=== PATIENT | male | born 1970 | race Caucasian/White ===

== ENCOUNTER 2017-02-24 21:13 | Inpatient (IN) | payer BC, OTHER ==
[2017-02-24] MEDS: Sodium Chloride 0.9% 1,000 ML IV SCH (21:30)
[2017-02-24 21:33] LABS: VENOUS BLOOD GAS BASE EXCESS 2.4 mmol/L (0.0-2.0); VENOUS BLOOD GAS PCO2 51 mmHg (40-60); VENOUS BLOOD PH 7.36 (7.32-7.43)
[2017-02-24 21:41] LABS: BASO % 0.5 % (0.0-2.0); EOS % 0.3 % (0.0-4.0); HEMATOCRIT 39.7 % (35.0-51.0); LYMPH # 2.9 K/uL (1.0-4.3); LYMPH % 43.1 % (20.0-40.0); MEAN CELL VOLUME 81.6 fL (80.0-94.0); MEAN CORPUSCULAR HEMOGLOBIN 27.3 pg (27.0-31.0); MEAN CORPUSCULAR HGB CONC 33.4 g/dL (33.0-37.0); MONO # 0.4 K/uL (0.0-0.8); RED CELL DISTRIBUTION WIDTH 14.3 % (11.5-14.5); WHITE BLOOD COUNT 6.7 K/uL (4.8-10.8)
[2017-02-24 21:46] LABS: RBC URINE 12 /hpf (0-3); URINE BACTERIA RARE (<OCC); URINE BILIRUBIN NEGATIVE (NEGATIVE); URINE COLOR Yellow (YELLOW); URINE GLUCOSE (UA) 1+ mg/dL (Normal); URINE KETONE NEGATIVE (NEGATIVE); URINE LEUKOCYTE ESTERASE NEG Leu/uL (Negative); URINE PROTEIN NEGATIVE (NEGATIVE); URINE UROBILINOGEN NORMAL mg/dL (0.2-1.0); WBC URINE 4 /hpf (0-5)
[2017-02-24 21:47] LABS: URINE BLOOD 1+ (NEGATIVE)
[2017-02-24 21:49] LABS: INR 1.1
[2017-02-24 21:52] LABS: CHLORIDE 100 mmol/L (98-107)
[2017-02-24 21:53] LABS: POTASSIUM 4.3 mmol/L (3.6-5.2); SODIUM 143 mmol/L (132-148)
[2017-02-24 21:55] LABS: ABG ALLEN TEST P; ABG MECHANICAL RATE 12; ARTERIAL BLOOD GAS MODE PRVC; ATERIAL BLOOD GAS PEEP 5; DRAW SITE LB
[2017-02-24 21:55] LABS: ALB/GLOB RATIO 1.9 (1.0-2.1); ALKALINE PHOSPHATASE 51 U/L (38-126); AST/SGOT 103 U/L (17-59); BILIRUBIN,TOTAL 0.9 mg/dL (0.2-1.3); CARBON DIOXIDE 24 mmol/L (22-30); CHOLESTEROL 100 mg/dL (0-199); GFR AFRICAN-AMERICAN > 60; TOTAL PROTEIN 6.7 g/dL (6.3-8.3)
[2017-02-24 21:56] LABS: ALT/SGPT 62 U/L (21-72); BLOOD UREA NITROGEN 16 mg/dL (9-20); CALCIUM 8.1 mg/dl (8.6-10.4); GLUCOSE,RANDOM 151 mg/dL (75-110)
[2017-02-24 22:08] LABS: ALCOHOL SERUM 523 mg/dl (0-10)
--- NOTE | 2017-02-24 22:14 | CT ---
EXAM: CT Head Without Intravenous Contrast CLINICAL HISTORY: 47 years old, male; Condition or disease; Other: Unresponsive; Additional info: Change of md, ? intox TECHNIQUE: Axial computed tomography images of the head/brain without intravenous contrast. All CT scans at this facility use one or more dose reduction techniques, viz.: automated exposure control; ma/kV adjustment per patient size (including targeted exams where dose is matched to indication; i.e. head); or iterative reconstruction technique. COMPARISON: No relevant prior studies available. FINDINGS: Brain: No intracranial hemorrhage. No mass. No definite edema. Ventricles: No hydrocephalus. Bones/joints: No acute fracture. Soft tissues: Mild to moderate stranding within scalp. Sinuses: Minimal mucosal thickening of LEFT sphenoid sinus. Mastoid air cells: No mastoid effusion. Orbits: Unremarkable as visualized. Tubes, lines and devices: Endotracheal tube. Orogastric tube. IMPRESSION: 1. No definite acute intracranial abnormality. 2. Incidental/non-acute findings are described above.
--- NOTE | 2017-02-24 22:33 | C.PDOC ---
History Of Present Illness 47 year old male was brought to the ED by EMS after passing out on train from [facility] to [place]. CPR was provided on scene and patient was entubated. Patient's was contacted who notes a medical history of HTN, diabetes, and alcoholism. EMS denies vomiting or fever. Time Seen by Provider: 02/24/17 21:17 Chief Complaint (Nursing): Cardiac Arrest History Per: EMS, Family ( via cell phone ) History/Exam Limitations: no limitations Onset/Duration Of Symptoms: Mins Current Symptoms Are (Timing): Still Present Recent travel outside of the [place]: No Past Medical History Reviewed: Historical Data, Nursing Documentation, Vital Signs Vital Signs: Last Vital Signs Temp 97.5 F L 02/24/17 23:18 Pulse 85 02/25/17 00:20 Resp 12 02/25/17 00:20 BP 107/52 L 02/25/17 00:09 Pulse Ox 100 02/25/17 00:20 - Medical History PMH: HTN, Hypercholesterolemia Family History: States: Unknown Family Hx - Social History Hx Alcohol Use: Yes Hx Substance Use: No - Immunization History Hx Tetanus Toxoid Vaccination: No Hx Influenza Vaccination: No Hx Pneumococcal Vaccination: No Review Of Systems Constitutional: Positive for: Other (patient passed out on the train and was given CPR ). Negative for: Fever, Chills Respiratory: Negative for: Cough Gastrointestinal: Negative for: Vomiting, Diarrhea Physical Exam - Physical Exam Appears: Non-toxic, In Acute Distress Skin: Warm, Dry, No Diaphoretic Head: Atraumatic, Normacephalic Eye(s): bilateral: Other (Fixed pupils at 3 cm ) Oral Mucosa: Moist Throat: Other (ET tube, 7.5, to 23 cm in lips ) Neck: Normal ROM, Supple Chest: Symmetrical, No Deformity Cardiovascular: Rhythm Regular, No Murmur Respiratory: Normal Breath Sounds, No Rales, No Rhonchi, No Wheezing Extremity: Other (Intraosseous in left humoral head and tibia ) ED Course And Treatment - Laboratory Results Result Diagrams: 02/24/17 21:30 02/24/17 21:30 Lab Interpretation: Abnormal (ABG, VBG, wnl, ETOH 523 H) ECG: Interpreted By [place] ECG Rhythm: Sinus Rhythm ECG Interpretation: Normal Rate From EC O2 Sat by Pulse Oximetry: 100 Pulse Ox Interpretation: Normal - Radiology CXR: Interpreted by Me CXR Interpretation: Yes: Other (good ET tube) Progress Note: EKG, CXR, and labs were ordered. Patient was given Diprivan and IV fluids. Reevaluation Time: 22:33 Reassessment Condition: Improved (not sedated, f/u ABG good.) - Physician Consult Information Outcome Of Conversation: 2230: d/w ICU, ok to ICU. 2230: d/w PMD, Dr. Lola Orta , ok to ICU Critical Care Time - Critical Care Note Total Time (in mins): 90 Documented critical care: time excludes all time spent performing seperately billable procedures. Medical Decision Making Medical Decision Making: alcohol abuse, collapse, ? resp arrest/apneic, CPR by bystanders on the train, but NSR initial stable rhythm, intubated in the field for poor resp effort and airway protection. Normal head CT. h/o etoh abuse to ICU for appropriate care of intubated pt while metabolizing alcohol. Disposition Doctor Will See Patient In The: Hospital Counseled Patient/Family Regarding: Studies Performed, Diagnosis - Disposition Disposition: HOSPITALIZED Disposition Time: 22:37 Condition: CRITICAL - Clinical Impression Clinical Impression: Respiratory arrest, Alcohol intoxication - Scribe Statement The provider has reviewed the documentation as recorded by the Scribe Lesley Valle All medical record entries made by the Scribe were at my direction and personally dictated by me. I have reviewed the chart and agree that the record accurately reflects my personal performance of the history, physical exam, medical decision making, and the department course for this patient. I have also personally directed, reviewed, and agree with the discharge instructions and disposition.
[2017-02-24] MEDS ORDERED: Sodium Chloride 0.9% 1,000 ML IV ONE (22:55)
[2017-02-24] MEDS ORDERED: Propofol 10 mg/ml 1,000 MG/100 ML VIAL IV PRN (23:15)
[2017-02-24] MEDS ORDERED: Propofol 10 mg/ml 1,000 MG/100 ML VIAL IV SCH (23:15)
--- NOTE | 2017-02-24 23:24 | CP.PCM.CON ---
History of Present Illness - History of Present Illness History of Present Illness: CCM 47 yo male with hx ETOH Abuse /HTN /HLD /? DM found unresponsive on train and received bystander CPR briefly then was intubated by EMS. Pt Intoxicated and no hx obtainable when seen in ED. Brother is at bedside. 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 Meds- reviewed FH- Unknown PE P-92 r- 15 BP-112/80 Intubated, moving on vent Perrl Neck- no jvdlungs- bilat bs Heart-rr aBd- benign eXt- no edmea, nontender Neuro- moves all ext Labs, EKG, [id number] A&P s/p Cardiac/ Resp Arrest ETOH Intoxication HTN HLD ADmit to ICU cont vent support tonigh Propofol titrated for sedation IV hydration maintain optimal lytes f/u labs ECHO neuro checks DVT & GI prophylaxis Detox counseling MVI /thiamine /folic acid Past Patient History - Past Social History Smoking Status: smokeless - CARDIAC Hx Hypercholesterolemia: Yes Hx Hypertension: Yes - ENDOCRINE/METABOLIC Hx Diabetes Mellitus Type 2: Yes - PSYCHIATRIC Hx Substance Use: No - SURGICAL HISTORY Hx Surgeries: No Meds Allergies/Adverse Reactions: Allergies Allergy/AdvReac Type Severity Reaction Status Date / Time grape Allergy Verified 02/24/17 21:31 - Medications Medications: Current Medications Sodium Chloride (Sodium Chloride 0.9%) 1,000 mls @ 250 mls/hr IV .Q4H ED Last Admin: 02/24/17 21:30 Dose: 250 mls/hr Sodium Chloride (Sodium Chloride 0.9%) 1,000 mls @ 150 mls/hr IV .Q6H40M ONE Stop: 02/25/17 05:34 Propofol (Diprivan) 1,000 mg in 100 mls @ 2.858 mls/hr IV .Q24H PRN; 5 MCG/KG/ MIN PRN Reason: Protocol Results - Vital Signs Recent Vital Signs: Last Vital Signs Temp Pulse 81 02/24/17 22:11 Resp 14 02/24/17 22:11 BP 112/80 02/24/17 22:11 Pulse Ox 100 02/24/17 22:39 - Labs Result Diagrams: 02/24/17 21:30 02/24/17 21:30 Labs: Laboratory Results - last 24 hr 02/24/17 02/24/17 02/24/17 21:23 21:30 21:30 WBC 6.7 RBC 4.87 Hgb 13.3 Hct 39.7 MCV 81.6 MCH 27.3 MCHC 33.4 RDW 14.3 Plt Count 348 MPV 7.0 L Neut % (Auto) 50.1 Lymph % (Auto) 43.1 H [place] % (Auto) 6.0 Eos % (Auto) 0.3 Baso % (Auto) 0.5 Neut # 3.4 Lymph # 2.9 [place] # 0.4 Eos # 0.0 Baso # 0.0 PT 12.6 H INR 1.1 APTT 25 Puncture Site pCO2 pO2 HCO3 ABG pH ABG Total CO2 ABG O2 Saturation ABG Base Excess Omer Test ABG Potassium VBG pH VBG pCO2 VBG HCO3 VBG Total CO2 VBG O2 Sat (Calc) VBG Base Excess VBG Potassium A-a O2 Difference Respiratory Index Sodium Chloride Glucose Lactate Vent Mode Mechanical Rate FiO2 Tidal Volume PEEP Potassium Carbon Dioxide Anion Gap BUN Creatinine Est GFR ( Amer) Est GFR (Non-Af Amer) POC Glucose (mg/dL) 145 H Random Glucose Hemoglobin A1c Calcium Total Bilirubin AST ALT Alkaline Phosphatase Troponin I Total Protein Albumin Globulin Albumin/Globulin Ratio Triglycerides Cholesterol LDL Cholesterol Direct HDL Cholesterol Arterial Blood Potassium Venous Blood Potassium Urine Color Urine Clarity Urine pH Ur Specific [place] Urine Protein Urine Glucose (UA) Urine Ketones Urine Blood Urine Nitrate Urine Bilirubin Urine Urobilinogen Ur Leukocyte Esterase Urine WBC (Auto) Urine RBC (Auto) Urine Bacteria Hyaline Casts Urine Opiates Screen Urine Methadone Screen Ur Barbiturates Screen Ur Phencyclidine Scrn Ur Amphetamines Screen U Benzodiazepines Scrn U Oth Cocaine Metabols U Cannabinoids Screen Alcohol, Quantitative 02/24/17 02/24/17 02/24/17 21:30 21:30 21:30 WBC RBC Hgb Hct MCV MCH MCHC RDW Plt Count MPV Neut % (Auto) Lymph % (Auto) [place] % (Auto) Eos % (Auto) Baso % (Auto) Neut # Lymph # [place] # Eos # Baso # PT INR APTT Puncture Site pCO2 pO2 311 H HCO3 ABG pH ABG Total CO2 ABG O2 Saturation ABG Base Excess Omer Test ABG Potassium VBG pH 7.36 VBG pCO2 51 VBG HCO3 26.9 VBG Total CO2 30.4 H VBG O2 Sat (Calc) 99.9 H VBG Base Excess 2.4 H VBG Potassium 3.7 A-a O2 Difference Respiratory Index Sodium 143 140.0 Chloride 100 106.0 Glucose 171 H Lactate 3.7 H Vent Mode Mechanical Rate FiO2 Tidal Volume PEEP Potassium 4.3 Carbon Dioxide 24 Anion Gap 24 H BUN 16 Creatinine 0.8 Est GFR ( Amer) > 60 Est GFR (Non-Af Amer) > 60 POC Glucose (mg/dL) Random Glucose 151 H Hemoglobin A1c 7.3 H Calcium 8.1 L Total Bilirubin 0.9 AST 103 H ALT 62 Alkaline Phosphatase 51 Troponin I < 0.0120 Total Protein 6.7 Albumin 4.3 Globulin 2.3 Albumin/Globulin Ratio 1.9 Triglycerides 361 H Cholesterol 100 LDL Cholesterol Direct < 30 HDL Cholesterol 65 Arterial Blood Potassium Venous Blood Potassium 3.7 Urine Color Urine Clarity Urine pH Ur Specific [place] Urine Protein Urine Glucose (UA) Urine Ketones Urine Blood Urine Nitrate Urine Bilirubin Urine Urobilinogen Ur Leukocyte Esterase Urine WBC (Auto) Urine RBC (Auto) Urine Bacteria Hyaline Casts Urine Opiates Screen Urine Methadone Screen Ur Barbiturates Screen Ur Phencyclidine Scrn Ur Amphetamines Screen U Benzodiazepines Scrn U Oth Cocaine Metabols U Cannabinoids Screen Alcohol, Quantitative 523 H 02/24/17 02/24/17 02/24/17 21:38 21:38 21:50 WBC RBC Hgb Hct MCV MCH MCHC RDW Plt Count MPV Neut % (Auto) Lymph % (Auto) [place] % (Auto) Eos % (Auto) Baso % (Auto) Neut # Lymph # [place] # Eos # Baso # PT INR APTT Puncture Site Lb pCO2 49 H pO2 190 H HCO3 25.6 ABG pH 7.35 ABG Total CO2 28.6 H ABG O2 Saturation 99.5 H ABG Base Excess 0.8 Omer Test P ABG Potassium 3.4 L VBG pH VBG pCO2 VBG HCO3 VBG Total CO2 VBG O2 Sat (Calc) VBG Base Excess VBG Potassium A-a O2 Difference 462.0 Respiratory Index 2.4 Sodium 140.0 Chloride 107.0 Glucose 169 H Lactate 3.7 H Vent Mode Prvc Mechanical Rate 12 FiO2 100.0 Tidal Volume 500 PEEP 5 Potassium Carbon Dioxide Anion Gap BUN Creatinine Est GFR ( Amer) Est GFR (Non-Af Amer) POC Glucose (mg/dL) Random Glucose Hemoglobin A1c Calcium Total Bilirubin AST ALT Alkaline Phosphatase Troponin I Total Protein Albumin Globulin Albumin/Globulin Ratio Triglycerides Cholesterol LDL Cholesterol Direct HDL Cholesterol Arterial Blood Potassium 3.4 L Venous Blood Potassium Urine Color Yellow Urine Clarity Clear Urine pH 6.0 Ur Specific [place] 1.014 Urine Protein Negative Urine Glucose (UA) 1+ H Urine Ketones Negative Urine Blood 1+ H Urine Nitrate Negative Urine Bilirubin Negative Urine Urobilinogen Normal Ur Leukocyte Esterase Neg Urine WBC (Auto) 4 Urine RBC (Auto) 12 H Urine Bacteria Rare Hyaline Casts 6-10 H Urine Opiates Screen Negative Urine Methadone Screen Negative Ur Barbiturates Screen Negative Ur Phencyclidine Scrn Negative Ur Amphetamines Screen Negative U Benzodiazepines Scrn Positive U Oth Cocaine Metabols Negative U Cannabinoids Screen Negative Alcohol, Quantitative Assessment & Plan (1) Respiratory arrest Status: Acute (2) Cardiac arrest Status: Acute (3) ETOH abuse Status: Acute
[2017-02-24] MEDS ORDERED: Thiamine 100 mg/ml Inj IV ONE (23:32)
[2017-02-25] MEDS: Sodium Chloride 0.9% 1,000 ML IV SCH ×3 (01:30→10:18)
[2017-02-25 05:48] LABS: ABG MECHANICAL RATE 12; ARTERIAL BLOOD GAS MODE PRVC; ARTERIAL BLOOD HGB O2 SAT 97.4 % (95.0-98.0); ATERIAL BLOOD GAS PEEP 5; CARBOXYHEMOGLOBIN 1.3 % (0.5-1.5); DRAW SITE RB; HHB 0.2 % (0.0-5.0); METHEMOGLOBIN 1.2 % (0.0-3.0)
[2017-02-25] MEDS: (Novolin R) Insulin Human Regular 100 units/ml vial SC SCH ×4 (06:00→17:02)
[2017-02-25 06:53] LABS: BASO % 0.4 % (0.0-2.0); EOS % 0.1 % (0.0-4.0); HEMATOCRIT 40.2 % (35.0-51.0); LYMPH # 2.7 K/uL (1.0-4.3); LYMPH % 28.7 % (20.0-40.0); MEAN CELL VOLUME 82.6 fL (80.0-94.0); MEAN CORPUSCULAR HEMOGLOBIN 27.9 pg (27.0-31.0); MEAN CORPUSCULAR HGB CONC 33.8 g/dL (33.0-37.0); MEAN PLATELET VOLUME 7.4 fL (7.2-11.7); MONO # 0.5 K/uL (0.0-0.8); MONO % 5.3 % (0.0-10.0); WHITE BLOOD COUNT 9.5 K/uL (4.8-10.8)
[2017-02-25 07:01] LABS: CHLORIDE 108 mmol/L (98-107); SODIUM 149 mmol/L (132-148)
[2017-02-25 07:02] LABS: POTASSIUM 4.9 mmol/L (3.6-5.2)
[2017-02-25 07:04] LABS: ALB/GLOB RATIO 1.8 (1.0-2.1); ALKALINE PHOSPHATASE 55 U/L (38-126); ALT/SGPT 60 U/L (21-72); AST/SGOT 76 U/L (17-59); BILIRUBIN,TOTAL 0.7 mg/dL (0.2-1.3); BLOOD UREA NITROGEN 11 mg/dL (9-20); CARBON DIOXIDE 23 mmol/L (22-30); GFR AFRICAN-AMERICAN > 60; GLUCOSE,RANDOM 109 mg/dL (75-110); TOTAL PROTEIN 6.4 g/dL (6.3-8.3)
[2017-02-25 07:55] LABS: PHOSPHOROUS 4.7 mg/dL (2.5-4.5)
[2017-02-25 07:56] LABS: MAGNESIUM 1.8 mg/dL (1.6-2.3)
--- NOTE | 2017-02-25 09:47 | RAD ---
HISTORY: adm, post-intub COMPARISON: No prior. FINDINGS: In situ ETT, tip of which lies approximately 5.2 cm above frantz. LUNGS: Poor inspiration with low lung volumes, crowded bronchovascular markings and minor bibasilar atelectasis. PLEURA: No significant pleural effusion identified, no pneumothorax apparent. CARDIOVASCULAR: Normal. OSSEOUS STRUCTURES: No significant abnormalities. VISUALIZED UPPER ABDOMEN: Normal. OTHER FINDINGS: None. IMPRESSION: In situ ETT as above. Poor inspiration with low lung volumes, crowded bronchovascular markings and minor bibasilar atelectasis.
[2017-02-25] MEDS: Multiple Vitamins Tab PO SCH (09:57)
--- NOTE | 2017-02-25 10:56 | RAD ---
PROCEDURE: CHEST RADIOGRAPH, 1 VIEW HISTORY: ICU routine/Intubated COMPARISON: Comparison made with chest radiograph 02/24/2017 FINDINGS: Interval removal endotracheal tube LUNGS: There appears to be some minimal left basilar atelectasis. PLEURA: No pneumothorax or pleural fluid seen. CARDIOVASCULAR: Normal. OSSEOUS STRUCTURES: No significant abnormalities. VISUALIZED UPPER ABDOMEN: Normal. OTHER FINDINGS: None. IMPRESSION: Interval removal endotracheal tube Suspect minimal left basilar atelectasis.
--- NOTE | 2017-02-25 14:37 | CP.PCM.HP ---
History of Present Illness - History of Present Illness History of Present Illness: A 47-year-old male was brought in by EMS after passing out on a train from [place] to [place]. CPR was provided on the scene and the patient was intubated Patient's was consulted and she gives a history of alcohol abuse, HTN, hyperlipidemia and diabetes mellitus. No other history is obtainable. Patient is intubated on mechanical ventilation. Past Patient History - Past Medical History & Family History Past Medical History?: Yes - Past Social History Smoking Status: Unknown If Ever Smoked - CARDIAC Hx Hypercholesterolemia: Yes Hx Hypertension: Yes - PULMONARY Hx Respiratory Disorders: No - NEUROLOGICAL Hx Neurological Disorder: No - HEENT Hx HEENT Problems: No - RENAL Hx Chronic Kidney Disease: No - ENDOCRINE/METABOLIC Hx Endocrine Disorders: Yes Hx Diabetes Mellitus Type 2: Yes - HEMATOLOGICAL/ONCOLOGICAL Hx Blood Disorders: No - INTEGUMENTARY Hx Dermatological Problems: No - MUSCULOSKELETAL/RHEUMATOLOGICAL Hx Musculoskeletal Disorders: No Hx Falls: No - GASTROINTESTINAL Hx Gastrointestinal Disorders: No - GENITOURINARY/GYNECOLOGICAL Hx Genitourinary Disorders: No - PSYCHIATRIC Hx Substance Use: No - SURGICAL HISTORY Hx Surgeries: No Meds Allergies/Adverse Reactions: Allergies Allergy/AdvReac Type Severity Reaction Status Date / Time grape Allergy Verified 02/24/17 21:31 Physical Exam - Constitutional Appears: Well - Head Exam Head Exam: ATRAUMATIC, NORMAL INSPECTION, NORMOCEPHALIC - Eye Exam Eye Exam: EOMI, Normal appearance, PERRL Pupil Exam: NORMAL ACCOMODATION, PERRL - ENT Exam ENT Exam: Mucous Membranes Moist, Normal Exam - Neck Exam Neck exam: Positive for: Normal Inspection - Respiratory Exam Respiratory Exam: Decreased Breath Sounds - Cardiovascular Exam Cardiovascular Exam: REGULAR RHYTHM, +S1, +S2 - GI/Abdominal Exam GI & Abdominal Exam: Diminished Bowel Sounds, Soft - Rectal Exam Rectal Exam: Deferred Results - Vital Signs Recent Vital Signs: Last Vital Signs Temp 98.3 F 02/25/17 12:00 Pulse 89 02/25/17 14:10 Resp 10 L 02/25/17 14:10 BP 116/68 02/25/17 13:54 Pulse Ox 99 02/25/17 14:10 - Labs Result Diagrams: 02/25/17 06:43 02/25/17 06:43 Labs: Laboratory Results - last 24 hr 02/24/17 02/24/17 02/24/17 21:23 21:30 21:30 WBC 6.7 RBC 4.87 Hgb 13.3 Hct 39.7 MCV 81.6 MCH 27.3 MCHC 33.4 RDW 14.3 Plt Count 348 MPV 7.0 L Neut % (Auto) 50.1 Lymph % (Auto) 43.1 H [place] % (Auto) 6.0 Eos % (Auto) 0.3 Baso % (Auto) 0.5 Neut # 3.4 Lymph # 2.9 [place] # 0.4 Eos # 0.0 Baso # 0.0 PT 12.6 H INR 1.1 APTT 25 Puncture Site pCO2 pO2 HCO3 ABG pH ABG Total CO2 ABG O2 Saturation ABG Base Excess ABG Hemoglobin ABG Carboxyhemoglobin POC ABG HHb (Measured) ABG Methemoglobin Omer Test ABG Potassium VBG pH VBG pCO2 VBG HCO3 VBG Total CO2 VBG O2 Sat (Calc) VBG Base Excess VBG Potassium A-a O2 Difference Respiratory Index Hgb O2 Saturation Sodium Chloride Glucose Lactate Vent Mode Mechanical Rate FiO2 Tidal Volume PEEP Potassium Carbon Dioxide Anion Gap BUN Creatinine Est GFR ( Amer) Est GFR (Non-Af Amer) POC Glucose (mg/dL) 145 H Random Glucose Hemoglobin A1c Calcium Phosphorus Magnesium Total Bilirubin AST ALT Alkaline Phosphatase Troponin I Total Protein Albumin Globulin Albumin/Globulin Ratio Triglycerides Cholesterol LDL Cholesterol Direct HDL Cholesterol Arterial Blood Potassium Venous Blood Potassium Urine Color Urine Clarity Urine pH Ur Specific [place] Urine Protein Urine Glucose (UA) Urine Ketones Urine Blood Urine Nitrate Urine Bilirubin Urine Urobilinogen Ur Leukocyte Esterase Urine WBC (Auto) Urine RBC (Auto) Urine Bacteria Hyaline Casts Urine Opiates Screen Urine Methadone Screen Ur Barbiturates Screen Ur Phencyclidine Scrn Ur Amphetamines Screen U Benzodiazepines Scrn U Oth Cocaine Metabols U Cannabinoids Screen Alcohol, Quantitative 02/24/17 02/24/17 02/24/17 21:30 21:30 21:30 WBC RBC Hgb Hct MCV MCH MCHC RDW Plt Count MPV Neut % (Auto) Lymph % (Auto) [place] % (Auto) Eos % (Auto) Baso % (Auto) Neut # Lymph # [place] # Eos # Baso # PT INR APTT Puncture Site pCO2 pO2 311 H HCO3 ABG pH ABG Total CO2 ABG O2 Saturation ABG Base Excess ABG Hemoglobin ABG Carboxyhemoglobin POC ABG HHb (Measured) ABG Methemoglobin Omer Test ABG Potassium VBG pH 7.36 VBG pCO2 51 VBG HCO3 26.9 VBG Total CO2 30.4 H VBG O2 Sat (Calc) 99.9 H VBG Base Excess 2.4 H VBG Potassium 3.7 A-a O2 Difference Respiratory Index Hgb O2 Saturation Sodium 143 140.0 Chloride 100 106.0 Glucose 171 H Lactate 3.7 H Vent Mode Mechanical Rate FiO2 Tidal Volume PEEP Potassium 4.3 Carbon Dioxide 24 Anion Gap 24 H BUN 16 Creatinine 0.8 Est GFR ( Amer) > 60 Est GFR (Non-Af Amer) > 60 POC Glucose (mg/dL) Random Glucose 151 H Hemoglobin A1c 7.3 H Calcium 8.1 L Phosphorus Magnesium Total Bilirubin 0.9 AST 103 H ALT 62 Alkaline Phosphatase 51 Troponin I < 0.0120 Total Protein 6.7 Albumin 4.3 Globulin 2.3 Albumin/Globulin Ratio 1.9 Triglycerides 361 H Cholesterol 100 LDL Cholesterol Direct < 30 HDL Cholesterol 65 Arterial Blood Potassium Venous Blood Potassium 3.7 Urine Color Urine Clarity Urine pH Ur Specific [place] Urine Protein Urine Glucose (UA) Urine Ketones Urine Blood Urine Nitrate Urine Bilirubin Urine Urobilinogen Ur Leukocyte Esterase Urine WBC (Auto) Urine RBC (Auto) Urine Bacteria Hyaline Casts Urine Opiates Screen Urine Methadone Screen Ur Barbiturates Screen Ur Phencyclidine Scrn Ur Amphetamines Screen U Benzodiazepines Scrn U Oth Cocaine Metabols U Cannabinoids Screen Alcohol, Quantitative 523 H 02/24/17 02/24/17 02/24/17 21:38 21:38 21:50 WBC RBC Hgb Hct MCV MCH MCHC RDW Plt Count MPV Neut % (Auto) Lymph % (Auto) [place] % (Auto) Eos % (Auto) Baso % (Auto) Neut # Lymph # [place] # Eos # Baso # PT INR APTT Puncture Site Lb pCO2 49 H pO2 190 H HCO3 25.6 ABG pH 7.35 ABG Total CO2 28.6 H ABG O2 Saturation 99.5 H ABG Base Excess 0.8 ABG Hemoglobin ABG Carboxyhemoglobin POC ABG HHb (Measured) ABG Methemoglobin Omer Test P ABG Potassium 3.4 L VBG pH VBG pCO2 VBG HCO3 VBG Total CO2 VBG O2 Sat (Calc) VBG Base Excess VBG Potassium A-a O2 Difference 462.0 Respiratory Index 2.4 Hgb O2 Saturation Sodium 140.0 Chloride 107.0 Glucose 169 H Lactate 3.7 H Vent Mode Prvc Mechanical Rate 12 FiO2 100.0 Tidal Volume 500 PEEP 5 Potassium Carbon Dioxide Anion Gap BUN Creatinine Est GFR ( Amer) Est GFR (Non-Af Amer) POC Glucose (mg/dL) Random Glucose Hemoglobin A1c Calcium Phosphorus Magnesium Total Bilirubin AST ALT Alkaline Phosphatase Troponin I Total Protein Albumin Globulin Albumin/Globulin Ratio Triglycerides Cholesterol LDL Cholesterol Direct HDL Cholesterol Arterial Blood Potassium 3.4 L Venous Blood Potassium Urine Color Yellow Urine Clarity Clear Urine pH 6.0 Ur Specific [place] 1.014 Urine Protein Negative Urine Glucose (UA) 1+ H Urine Ketones Negative Urine Blood 1+ H Urine Nitrate Negative Urine Bilirubin Negative Urine Urobilinogen Normal Ur Leukocyte Esterase Neg Urine WBC (Auto) 4 Urine RBC (Auto) 12 H Urine Bacteria Rare Hyaline Casts 6-10 H Urine Opiates Screen Negative Urine Methadone Screen Negative Ur Barbiturates Screen Negative Ur Phencyclidine Scrn Negative Ur Amphetamines Screen Negative U Benzodiazepines Scrn Positive U Oth Cocaine Metabols Negative U Cannabinoids Screen Negative Alcohol, Quantitative 02/25/17 02/25/17 02/25/17 00:04 05:16 05:49 WBC RBC Hgb Hct MCV MCH MCHC RDW Plt Count MPV Neut % (Auto) Lymph % (Auto) [place] % (Auto) Eos % (Auto) Baso % (Auto) Neut # Lymph # [place] # Eos # Baso # PT INR APTT Puncture Site Rb pCO2 49 H pO2 277 H HCO3 24.9 ABG pH 7.34 L ABG Total CO2 27.9 ABG O2 Saturation 99.8 H ABG Base Excess 0 ABG Hemoglobin 12.7 ABG Carboxyhemoglobin 1.3 POC ABG HHb (Measured) 0.2 ABG Methemoglobin 1.2 Omer Test Na ABG Potassium VBG pH VBG pCO2 VBG HCO3 VBG Total CO2 VBG O2 Sat (Calc) VBG Base Excess VBG Potassium A-a O2 Difference 90.0 Respiratory Index 0.3 Hgb O2 Saturation 97.4 Sodium Chloride Glucose Lactate Vent Mode Prvc Mechanical Rate 12 FiO2 60.0 Tidal Volume 500 PEEP 5 Potassium Carbon Dioxide Anion Gap BUN Creatinine Est GFR ( Amer) Est GFR (Non-Af Amer) POC Glucose (mg/dL) 186 H 119 H Random Glucose Hemoglobin A1c Calcium Phosphorus Magnesium Total Bilirubin AST ALT Alkaline Phosphatase Troponin I Total Protein Albumin Globulin Albumin/Globulin Ratio Triglycerides Cholesterol LDL Cholesterol Direct HDL Cholesterol Arterial Blood Potassium Venous Blood Potassium Urine Color Urine Clarity Urine pH Ur Specific [place] Urine Protein Urine Glucose (UA) Urine Ketones Urine Blood Urine Nitrate Urine Bilirubin Urine Urobilinogen Ur Leukocyte Esterase Urine WBC (Auto) Urine RBC (Auto) Urine Bacteria Hyaline Casts Urine Opiates Screen Urine Methadone Screen Ur Barbiturates Screen Ur Phencyclidine Scrn Ur Amphetamines Screen U Benzodiazepines Scrn U Oth Cocaine Metabols U Cannabinoids Screen Alcohol, Quantitative 02/25/17 02/25/17 02/25/17 06:43 06:43 11:58 WBC 9.5 RBC 4.87 Hgb 13.6 Hct 40.2 MCV 82.6 MCH 27.9 MCHC 33.8 RDW 14.0 Plt Count 275 MPV 7.4 Neut % (Auto) 65.5 Lymph % (Auto) 28.7 [place] % (Auto) 5.3 Eos % (Auto) 0.1 Baso % (Auto) 0.4 Neut # 6.2 Lymph # 2.7 [place] # 0.5 Eos # 0.0 Baso # 0.0 PT INR APTT Puncture Site pCO2 pO2 HCO3 ABG pH ABG Total CO2 ABG O2 Saturation ABG Base Excess ABG Hemoglobin ABG Carboxyhemoglobin POC ABG HHb (Measured) ABG Methemoglobin Omer Test ABG Potassium VBG pH VBG pCO2 VBG HCO3 VBG Total CO2 VBG O2 Sat (Calc) VBG Base Excess VBG Potassium A-a O2 Difference Respiratory Index Hgb O2 Saturation Sodium 149 H Chloride 108 H Glucose Lactate Vent Mode Mechanical Rate FiO2 Tidal Volume PEEP Potassium 4.9 Carbon Dioxide 23 Anion Gap 24 H BUN 11 Creatinine 0.7 L Est GFR ( Amer) > 60 Est GFR (Non-Af Amer) > 60 POC Glucose (mg/dL) 139 H Random Glucose 109 Hemoglobin A1c Calcium 8.0 L Phosphorus 4.7 H Magnesium 1.8 Total Bilirubin 0.7 AST 76 H D ALT 60 Alkaline Phosphatase 55 Troponin I Total Protein 6.4 Albumin 4.1 Globulin 2.3 Albumin/Globulin Ratio 1.8 Triglycerides Cholesterol LDL Cholesterol Direct HDL Cholesterol Arterial Blood Potassium Venous Blood Potassium Urine Color Urine Clarity Urine pH Ur Specific [place] Urine Protein Urine Glucose (UA) Urine Ketones Urine Blood Urine Nitrate Urine Bilirubin Urine Urobilinogen Ur Leukocyte Esterase Urine WBC (Auto) Urine RBC (Auto) Urine Bacteria Hyaline Casts Urine Opiates Screen Urine Methadone Screen Ur Barbiturates Screen Ur Phencyclidine Scrn Ur Amphetamines Screen U Benzodiazepines Scrn U Oth Cocaine Metabols U Cannabinoids Screen Alcohol, Quantitative
[2017-02-25] MEDS: Dextrose 5%/0.9% NS 1,000 ML IV SCH (15:02)
[2017-02-25] MEDS: Thiamine 100 mg/ml Inj IV SCH (15:03)
--- NOTE | 2017-02-25 16:17 | CARD ---
APPROVED REPORT EXAM: Two-dimensional and M-mode echocardiogram with Doppler and color Doppler. INDICATION alcohol abuse 2D DIMENSIONS IVSd0.9 (0.7-1.1cm)LVDd4.4 (3.9-5.9cm) PWd0.9 (0.7-1.1cm)LVDs3.0 (2.5-4.0cm) FS (%) 31.0 %LVEF (%)59.0 (>50%) M-Mode DIMENSIONS Left Atrium (MM)3.78 (2.5-4.0cm)Aortic Root3.05 (2.2-3.7cm) Aortic Cusp Exc.1.87 (1.5-2.0cm) Aortic Valve AoV Peak Bwckrbaz664.6cm/sAoV VTI26.5cmAO Peak GR.5mmHg LVOT Peak Xddpgbep27.6cm/Lorna Mean GR.3mmHg Mitral Valve MV E Tskzpzxa66.9cm/sMV A Clzxdsvf05.2cm/sE/A ratio1.5 TDI E/Lateral E'0.0E/Medial E'0.0 Pulmonary Valve PV Peak Ezswaaqv293.9cm/sPV Peak Grad.4mmHg Tricuspid Valve TR Peak Vjtjarrq793mv/sTR Peak Gr.9mmHg LEFT VENTRICLE The left ventricle is normal size. There is normal left ventricular wall thickness. Left ventricle systolic function is normal. The Ejection Fraction is 55-60%. There is normal LV segmental wall motion. The left ventricular diastolic function is normal. No left ventricle thrombus noted on this study. RIGHT VENTRICLE The right ventricle is normal size. The right ventricular systolic function is normal. ATRIA The left atrium size is normal. The right atrium size is normal. AORTIC VALVE The aortic valve is mildly to moderately sclerotic. The aortic valve is trileaflet. No aortic regurgitation is present. There is no aortic valvular stenosis. MITRAL VALVE Mitral annular calcification is mild. There is no evidence of mitral valve prolapse. There is no mitral valve stenosis. Mitral regurgitation is trace. TRICUSPID VALVE The tricuspid valve is normal in structure. There is trace to mild tricuspid regurgitation. There is no pulmonary hypertension. There is no tricuspid valve prolapse or vegetation. There is no tricuspid valve stenosis. PULMONIC VALVE The pulmonic valve is not well visualized. There is no pulmonic valvular regurgitation. GREAT VESSELS The aortic root is normal in size. The IVC is normal in size and collapses >50% with inspiration. PERICARDIAL EFFUSION There is no pericardial effusion. There is no pleural effusion. <Conclusion> The left ventricle is normal size. Left ventricle systolic function is normal. The Ejection Fraction is 55-60%. The left ventricular diastolic function is normal. The right ventricle is normal size. The right ventricular systolic function is normal. The left atrium size is normal. The right atrium size is normal. Mitral regurgitation is trace. There is trace to mild tricuspid regurgitation.
--- NOTE | 2017-02-25 17:01 | CP.CCUPN ---
CCU Subjective - Physician Review Events Since Last Encounter (Free Text): 02/25/17 17:00 47 yo male with hx ETOH Abuse /HTN /HLD /? DM [place] on train and received bystander CPR briefly then was intubated by EMS. Pt Intoxicated and no hx obtainable when seen in ED. Brother is at bedside. 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- reviewed FH- Unknown PE P-92 r- 15 BP-112/80 Intubated, moving on vent Perrl Neck- no jvdlungs- bilat bs Heart-rr aBd- benign eXt- no edmea, nontender Neuro- moves all ext Labs, EKG, [id number] A&P s/p Cardiac/ Resp Arrest ETOH Intoxication HTN HLD ADmit to ICU cont vent support tonigh Propofol titrated for sedation IV hydration maintain optimal lytes f/u labs ECHO neuro checks DVT & GI prophylaxis Detox counseling MVI /thiamine /folic acid Patient self extubated this morning. Later he started developing tremor, and a tachycardia, and evidence delirium tremens noted Started on benzodiazepine. IV fluids started. Patient refusing treatment, family was called, and then finally patient agreed. Currently patient is comfortable. Mildly tremor and tachycardia noted, otherwise stable. Diagnosis cardiac arrest. Respiratory failure Acute Alcoholism, associated with impending DTs CCU Objective - Vital Signs / Intake & Output Vital Signs (Last 4 hours): Vital Signs Pulse Resp BP Pulse Ox 02/25/17 15:54 115/68 02/25/17 15:53 102 H 8 L 97 02/25/17 15:50 102 H 10 L 02/25/17 15:40 110 H 9 L 99 02/25/17 15:30 111 H 11 L 96 02/25/17 15:20 106 H 12 99 02/25/17 15:10 109 H 11 L 99 02/25/17 15:00 113 H 12 97 02/25/17 14:54 119 H 9 L 121/75 99 02/25/17 14:50 116 H 12 98 02/25/17 14:40 121 H 16 99 02/25/17 14:30 123 H 14 96 02/25/17 14:20 96 H 9 L 97 02/25/17 14:10 89 10 L 99 02/25/17 14:00 97 H 17 98 02/25/17 13:54 92 H 10 L 116/68 97 02/25/17 13:53 87 11 L 114/66 97 02/25/17 13:50 88 13 02/25/17 13:49 94 H Intake and Output (Last 8hrs): Intake & Output 02/25/17 02/25/17 02/25/17 06:59 14:59 22:59 Intake Total 2891.4 1525 125 Output Total 2296 598 0 Balance 595.4 927 125 Weight 165 lb Intake: IV 1085 Intake, IV Amount 1806.4 1125 125 Right Forearm 1750 1125 125 Right Forearm Y Port 56.4 Oral 400 Output: Urine 2296 598 0 Urethral (Bolanos) 1596 598 Urine, Voided 0 0 Other: Voiding Method Indwelling Catheter - Medications Active Medications: Active Medications Generic Name Dose Route Start Last Admin Trade Name Freq PRN Reason Stop Dose Admin Famotidine 20 mg 02/24/17 23:30 02/25/17 09:57 Pepcid IVP 20 mg Q12 ED Administration Heparin Sodium (Porcine) 5,000 units 02/24/17 23:30 02/25/17 14:38 Heparin SC 5,000 units Q8 ED Administration Propofol 1,000 mg in 100 mls @ 2.858 mls/hr 02/24/17 23:15 02/25/17 06:45 Diprivan IV 0 mcg/kg/min .Q24H PRN 0 mls/hr Protocol Titration 5 MCG/KG/MIN Dextrose/Sodium Chloride 1,000 mls @ 125 mls/hr 02/25/17 15:00 02/25/17 15:02 Dextrose 5%/0.9% Ns 1000 Ml IV 125 mls/hr .Q8H ED Administration Folic Acid 1 mg/ Sodium 100.2 mls @ 60 mls/hr 02/25/17 15:00 02/25/17 16:56 Chloride IV 60 mls/hr DAILY ED Administration Insulin Human Regular 0 unit 02/25/17 00:00 02/25/17 12:00 Novolin R SC Not Given Q6H ED Protocol Lorazepam 2 mg 02/25/17 14:51 02/25/17 15:02 Ativan IVP 2 mg Q3 PRN Administration Anxiety Multivitamins 1 tab 02/25/17 10:00 02/25/17 09:57 Hexavitamin PO 1 tab DAILY ED Administration Thiamine HCl 100 mg 02/25/17 15:00 02/25/17 15:03 Vitamin B1 Inj IV 100 mg DAILY ED Administration - Patient Studies Lab Studies: Lab Studies 02/25/17 02/25/17 02/25/17 Range/Units 16:57 14:58 11:58 WBC (4.8-10.8) K/uL RBC (4.40-5.90) Mil/uL Hgb (12.0-18.0) g/dL Hct (35.0-51.0) % MCV (80.0-94.0) fL MCH (27.0-31.0) pg MCHC (33.0-37.0) g/dL RDW (11.5-14.5) % Plt Count (130-400) K/uL MPV (7.2-11.7) fL Neut % (Auto) (50.0-75.0) % Lymph % (Auto) (20.0-40.0) % Amite % (Auto) (0.0-10.0) % Eos % (Auto) (0.0-4.0) % Baso % (Auto) (0.0-2.0) % Neut # (1.8-7.0) K/uL Lymph # (1.0-4.3) K/uL Amite # (0.0-0.8) K/uL Eos # (0.0-0.7) K/uL Baso # (0.0-0.2) K/uL PT (9.7-12.2) SECONDS INR APTT (21-34) SECONDS Puncture Site pCO2 (35-45) mm/Hg pO2 (30-55) mm/Hg HCO3 (21-28) mmol/L ABG pH (7.35-7.45) ABG Total CO2 (22-28) mmol/L ABG O2 Saturation (95-98) % ABG Base Excess (-2.0-3.0) mmol/L ABG Hemoglobin (11.7-17.4) g/dL ABG Carboxyhemoglobin (0.5-1.5) % POC ABG HHb (Measured) (0.0-5.0) % ABG Methemoglobin (0.0-3.0) % Omer Test ABG Potassium (3.6-5.2) mmol/L VBG pH (7.32-7.43) VBG pCO2 (40-60) mmHg VBG HCO3 mmol/L VBG Total CO2 (22-28) mmol/L VBG O2 Sat (Calc) (40-65) % VBG Base Excess (0.0-2.0) mmol/L VBG Potassium (3.6-5.2) mmol/L A-a O2 Difference mm/Hg Respiratory Index Hgb O2 Saturation (95.0-98.0) % Sodium (132-148) mmol/l Chloride (98-107) mmol/L Glucose (75-110) mg/dl Lactate (0.7-2.1) mmol/L Vent Mode Mechanical Rate FiO2 % Tidal Volume PEEP Potassium (3.6-5.2) mmol/L Carbon Dioxide (22-30) mmol/L Anion Gap (10-20) BUN (9-20) mg/dL Creatinine (0.8-1.5) MG/DL Est GFR ( Amer) Est GFR (Non-Af Amer) POC Glucose (mg/dL) 154 H 139 H (65-110) mg/dL Random Glucose (75-110) mg/dL Hemoglobin A1c (4.2-6.5) % Calcium (8.6-10.4) mg/dl Phosphorus (2.5-4.5) mg/dL Magnesium (1.6-2.3) mg/dL Total Bilirubin (0.2-1.3) mg/dL AST (17-59) U/L ALT (21-72) U/L Alkaline Phosphatase (38-126) U/L Troponin I < 0.0120 (0.00-0.120) ng/mL Total Protein (6.3-8.3) g/dL Albumin (3.5-5.0) g/dL Globulin (2.2-3.9) gm/dL Albumin/Globulin Ratio (1.0-2.1) Triglycerides (0-149) mg/dL Cholesterol (0-199) mg/dL LDL Cholesterol Direct (0-129) mg/dL HDL Cholesterol (30-70) mg/dL Arterial Blood Potassium (3.6-5.2) mmol/L Venous Blood Potassium (3.6-5.2) mmol/L Urine Color (YELLOW) Urine Clarity (Clear) Urine pH (5.0-8.0) Ur Specific Gepp (1.003-1.030) Urine Protein (NEGATIVE) mg/dL Urine Glucose (UA) (Normal) mg/dL Urine Ketones (NEGATIVE) mg/dL Urine Blood (NEGATIVE) Urine Nitrate (NEGATIVE) Urine Bilirubin (NEGATIVE) Urine Urobilinogen (0.2-1.0) mg/dL Ur Leukocyte Esterase (Negative) Uriah/uL Urine WBC (Auto) (0-5) /hpf Urine RBC (Auto) (0-3) /hpf Urine Bacteria (<OCC) Hyaline Casts (0-2) /lpf Urine Opiates Screen (NEGATIVE) Urine Methadone Screen (NEGATIVE) Ur Barbiturates Screen (NEGATIVE) Ur Phencyclidine Scrn (NEGATIVE) Ur Amphetamines Screen (NEGATIVE) U Benzodiazepines Scrn (NEGATIVE) U Oth Cocaine Metabols (NEGATIVE) U Cannabinoids Screen (NEGATIVE) Alcohol, Quantitative (0-10) mg/dl 02/25/17 02/25/17 02/25/17 Range/Units 06:43 06:43 05:49 WBC 9.5 (4.8-10.8) K/uL RBC 4.87 (4.40-5.90) Mil/uL Hgb 13.6 (12.0-18.0) g/dL Hct 40.2 (35.0-51.0) % MCV 82.6 (80.0-94.0) fL MCH 27.9 (27.0-31.0) pg MCHC 33.8 (33.0-37.0) g/dL RDW 14.0 (11.5-14.5) % Plt Count 275 (130-400) K/uL MPV 7.4 (7.2-11.7) fL Neut % (Auto) 65.5 (50.0-75.0) % Lymph % (Auto) 28.7 (20.0-40.0) % Amite % (Auto) 5.3 (0.0-10.0) % Eos % (Auto) 0.1 (0.0-4.0) % Baso % (Auto) 0.4 (0.0-2.0) % Neut # 6.2 (1.8-7.0) K/uL Lymph # 2.7 (1.0-4.3) K/uL Amite # 0.5 (0.0-0.8) K/uL Eos # 0.0 (0.0-0.7) K/uL Baso # 0.0 (0.0-0.2) K/uL PT (9.7-12.2) SECONDS INR APTT (21-34) SECONDS Puncture Site pCO2 (35-45) mm/Hg pO2 (30-55) mm/Hg HCO3 (21-28) mmol/L ABG pH (7.35-7.45) ABG Total CO2 (22-28) mmol/L ABG O2 Saturation (95-98) % ABG Base Excess (-2.0-3.0) mmol/L ABG Hemoglobin (11.7-17.4) g/dL ABG Carboxyhemoglobin (0.5-1.5) % POC ABG HHb (Measured) (0.0-5.0) % ABG Methemoglobin (0.0-3.0) % Omer Test ABG Potassium (3.6-5.2) mmol/L VBG pH (7.32-7.43) VBG pCO2 (40-60) mmHg VBG HCO3 mmol/L VBG Total CO2 (22-28) mmol/L VBG O2 Sat (Calc) (40-65) % VBG Base Excess (0.0-2.0) mmol/L VBG Potassium (3.6-5.2) mmol/L A-a O2 Difference mm/Hg Respiratory Index Hgb O2 Saturation (95.0-98.0) % Sodium 149 H (132-148) mmol/l Chloride 108 H (98-107) mmol/L Glucose (75-110) mg/dl Lactate (0.7-2.1) mmol/L Vent Mode Mechanical Rate FiO2 % Tidal Volume PEEP Potassium 4.9 (3.6-5.2) mmol/L Carbon Dioxide 23 (22-30) mmol/L Anion Gap 24 H (10-20) BUN 11 (9-20) mg/dL Creatinine 0.7 L (0.8-1.5) MG/DL Est GFR ( Amer) > 60 Est GFR (Non-Af Amer) > 60 POC Glucose (mg/dL) 119 H (65-110) mg/dL Random Glucose 109 (75-110) mg/dL Hemoglobin A1c (4.2-6.5) % Calcium 8.0 L (8.6-10.4) mg/dl Phosphorus 4.7 H (2.5-4.5) mg/dL Magnesium 1.8 (1.6-2.3) mg/dL Total Bilirubin 0.7 (0.2-1.3) mg/dL AST 76 H D (17-59) U/L ALT 60 (21-72) U/L Alkaline Phosphatase 55 (38-126) U/L Troponin I (0.00-0.120) ng/mL Total Protein 6.4 (6.3-8.3) g/dL Albumin 4.1 (3.5-5.0) g/dL Globulin 2.3 (2.2-3.9) gm/dL Albumin/Globulin Ratio 1.8 (1.0-2.1) Triglycerides (0-149) mg/dL Cholesterol (0-199) mg/dL LDL Cholesterol Direct (0-129) mg/dL HDL Cholesterol (30-70) mg/dL Arterial Blood Potassium (3.6-5.2) mmol/L Venous Blood Potassium (3.6-5.2) mmol/L Urine Color (YELLOW) Urine Clarity (Clear) Urine pH (5.0-8.0) Ur Specific Gepp (1.003-1.030) Urine Protein (NEGATIVE) mg/dL Urine Glucose (UA) (Normal) mg/dL Urine Ketones (NEGATIVE) mg/dL Urine Blood (NEGATIVE) Urine Nitrate (NEGATIVE) Urine Bilirubin (NEGATIVE) Urine Urobilinogen (0.2-1.0) mg/dL Ur Leukocyte Esterase (Negative) Uriah/uL Urine WBC (Auto) (0-5) /hpf Urine RBC (Auto) (0-3) /hpf Urine Bacteria (<OCC) Hyaline Casts (0-2) /lpf Urine Opiates Screen (NEGATIVE) Urine Methadone Screen (NEGATIVE) Ur Barbiturates Screen (NEGATIVE) Ur Phencyclidine Scrn (NEGATIVE) Ur Amphetamines Screen (NEGATIVE) U Benzodiazepines Scrn (NEGATIVE) U Oth Cocaine Metabols (NEGATIVE) U Cannabinoids Screen (NEGATIVE) Alcohol, Quantitative (0-10) mg/dl 02/25/17 02/25/17 02/24/17 Range/Units 05:16 00:04 21:50 WBC (4.8-10.8) K/uL RBC (4.40-5.90) Mil/uL Hgb (12.0-18.0) g/dL Hct (35.0-51.0) % MCV (80.0-94.0) fL MCH (27.0-31.0) pg MCHC (33.0-37.0) g/dL RDW (11.5-14.5) % Plt Count (130-400) K/uL MPV (7.2-11.7) fL Neut % (Auto) (50.0-75.0) % Lymph % (Auto) (20.0-40.0) % Amite % (Auto) (0.0-10.0) % Eos % (Auto) (0.0-4.0) % Baso % (Auto) (0.0-2.0) % Neut # (1.8-7.0) K/uL Lymph # (1.0-4.3) K/uL Amite # (0.0-0.8) K/uL Eos # (0.0-0.7) K/uL Baso # (0.0-0.2) K/uL PT (9.7-12.2) SECONDS INR APTT (21-34) SECONDS Puncture Site Rb Lb pCO2 49 H 49 H (35-45) mm/Hg pO2 277 H 190 H (30-55) mm/Hg HCO3 24.9 25.6 (21-28) mmol/L ABG pH 7.34 L 7.35 (7.35-7.45) ABG Total CO2 27.9 28.6 H (22-28) mmol/L ABG O2 Saturation 99.8 H 99.5 H (95-98) % ABG Base Excess 0 0.8 (-2.0-3.0) mmol/L ABG Hemoglobin 12.7 (11.7-17.4) g/dL ABG Carboxyhemoglobin 1.3 (0.5-1.5) % POC ABG HHb (Measured) 0.2 (0.0-5.0) % ABG Methemoglobin 1.2 (0.0-3.0) % Omer Test Na P ABG Potassium 3.4 L (3.6-5.2) mmol/L VBG pH (7.32-7.43) VBG pCO2 (40-60) mmHg VBG HCO3 mmol/L VBG Total CO2 (22-28) mmol/L VBG O2 Sat (Calc) (40-65) % VBG Base Excess (0.0-2.0) mmol/L VBG Potassium (3.6-5.2) mmol/L A-a O2 Difference 90.0 462.0 mm/Hg Respiratory Index 0.3 2.4 Hgb O2 Saturation 97.4 (95.0-98.0) % Sodium 140.0 (132-148) mmol/l Chloride 107.0 (98-107) mmol/L Glucose 169 H (75-110) mg/dl Lactate 3.7 H (0.7-2.1) mmol/L Vent Mode Prvc Prvc Mechanical Rate 12 12 FiO2 60.0 100.0 % Tidal Volume 500 500 PEEP 5 5 Potassium (3.6-5.2) mmol/L Carbon Dioxide (22-30) mmol/L Anion Gap (10-20) BUN (9-20) mg/dL Creatinine (0.8-1.5) MG/DL Est GFR ( Amer) Est GFR (Non-Af Amer) POC Glucose (mg/dL) 186 H (65-110) mg/dL Random Glucose (75-110) mg/dL Hemoglobin A1c (4.2-6.5) % Calcium (8.6-10.4) mg/dl Phosphorus (2.5-4.5) mg/dL Magnesium (1.6-2.3) mg/dL Total Bilirubin (0.2-1.3) mg/dL AST (17-59) U/L ALT (21-72) U/L Alkaline Phosphatase (38-126) U/L Troponin I (0.00-0.120) ng/mL Total Protein (6.3-8.3) g/dL Albumin (3.5-5.0) g/dL Globulin (2.2-3.9) gm/dL Albumin/Globulin Ratio (1.0-2.1) Triglycerides (0-149) mg/dL Cholesterol (0-199) mg/dL LDL Cholesterol Direct (0-129) mg/dL HDL Cholesterol (30-70) mg/dL Arterial Blood Potassium 3.4 L (3.6-5.2) mmol/L Venous Blood Potassium (3.6-5.2) mmol/L Urine Color (YELLOW) Urine Clarity (Clear) Urine pH (5.0-8.0) Ur Specific Gepp (1.003-1.030) Urine Protein (NEGATIVE) mg/dL Urine Glucose (UA) (Normal) mg/dL Urine Ketones (NEGATIVE) mg/dL Urine Blood (NEGATIVE) Urine Nitrate (NEGATIVE) Urine Bilirubin (NEGATIVE) Urine Urobilinogen (0.2-1.0) mg/dL Ur Leukocyte Esterase (Negative) Uriah/uL Urine WBC (Auto) (0-5) /hpf Urine RBC (Auto) (0-3) /hpf Urine Bacteria (<OCC) Hyaline Casts (0-2) /lpf Urine Opiates Screen (NEGATIVE) Urine Methadone Screen (NEGATIVE) Ur Barbiturates Screen (NEGATIVE) Ur Phencyclidine Scrn (NEGATIVE) Ur Amphetamines Screen (NEGATIVE) U Benzodiazepines Scrn (NEGATIVE) U Oth Cocaine Metabols (NEGATIVE) U Cannabinoids Screen (NEGATIVE) Alcohol, Quantitative (0-10) mg/dl 02/24/17 02/24/17 02/24/17 Range/Units 21:38 21:38 21:30 WBC (4.8-10.8) K/uL RBC (4.40-5.90) Mil/uL Hgb (12.0-18.0) g/dL Hct (35.0-51.0) % MCV (80.0-94.0) fL MCH (27.0-31.0) pg MCHC (33.0-37.0) g/dL RDW (11.5-14.5) % Plt Count (130-400) K/uL MPV (7.2-11.7) fL Neut % (Auto) (50.0-75.0) % Lymph % (Auto) (20.0-40.0) % Amite % (Auto) (0.0-10.0) % Eos % (Auto) (0.0-4.0) % Baso % (Auto) (0.0-2.0) % Neut # (1.8-7.0) K/uL Lymph # (1.0-4.3) K/uL Amite # (0.0-0.8) K/uL Eos # (0.0-0.7) K/uL Baso # (0.0-0.2) K/uL PT (9.7-12.2) SECONDS INR APTT (21-34) SECONDS Puncture Site pCO2 (35-45) mm/Hg pO2 311 H (30-55) mm/Hg HCO3 (21-28) mmol/L ABG pH (7.35-7.45) ABG Total CO2 (22-28) mmol/L ABG O2 Saturation (95-98) % ABG Base Excess (-2.0-3.0) mmol/L ABG Hemoglobin (11.7-17.4) g/dL ABG Carboxyhemoglobin (0.5-1.5) % POC ABG HHb (Measured) (0.0-5.0) % ABG Methemoglobin (0.0-3.0) % Omer Test ABG Potassium (3.6-5.2) mmol/L VBG pH 7.36 (7.32-7.43) VBG pCO2 51 (40-60) mmHg VBG HCO3 26.9 mmol/L VBG Total CO2 30.4 H (22-28) mmol/L VBG O2 Sat (Calc) 99.9 H (40-65) % VBG Base Excess 2.4 H (0.0-2.0) mmol/L VBG Potassium 3.7 (3.6-5.2) mmol/L A-a O2 Difference mm/Hg Respiratory Index Hgb O2 Saturation (95.0-98.0) % Sodium 140.0 (132-148) mmol/l Chloride 106.0 (98-107) mmol/L Glucose 171 H (75-110) mg/dl Lactate 3.7 H (0.7-2.1) mmol/L Vent Mode Mechanical Rate FiO2 % Tidal Volume PEEP Potassium (3.6-5.2) mmol/L Carbon Dioxide (22-30) mmol/L Anion Gap (10-20) BUN (9-20) mg/dL Creatinine (0.8-1.5) MG/DL Est GFR ( Amer) Est GFR (Non-Af Amer) POC Glucose (mg/dL) (65-110) mg/dL Random Glucose (75-110) mg/dL Hemoglobin A1c (4.2-6.5) % Calcium (8.6-10.4) mg/dl Phosphorus (2.5-4.5) mg/dL Magnesium (1.6-2.3) mg/dL Total Bilirubin (0.2-1.3) mg/dL AST (17-59) U/L ALT (21-72) U/L Alkaline Phosphatase (38-126) U/L Troponin I (0.00-0.120) ng/mL Total Protein (6.3-8.3) g/dL Albumin (3.5-5.0) g/dL Globulin (2.2-3.9) gm/dL Albumin/Globulin Ratio (1.0-2.1) Triglycerides (0-149) mg/dL Cholesterol (0-199) mg/dL LDL Cholesterol Direct (0-129) mg/dL HDL Cholesterol (30-70) mg/dL Arterial Blood Potassium (3.6-5.2) mmol/L Venous Blood Potassium 3.7 (3.6-5.2) mmol/L Urine Color Yellow (YELLOW) Urine Clarity Clear (Clear) Urine pH 6.0 (5.0-8.0) Ur Specific Gepp 1.014 (1.003-1.030) Urine Protein Negative (NEGATIVE) mg/dL Urine Glucose (UA) 1+ H (Normal) mg/dL Urine Ketones Negative (NEGATIVE) mg/dL Urine Blood 1+ H (NEGATIVE) Urine Nitrate Negative (NEGATIVE) Urine Bilirubin Negative (NEGATIVE) Urine Urobilinogen Normal (0.2-1.0) mg/dL Ur Leukocyte Esterase Neg (Negative) Uriah/uL Urine WBC (Auto) 4 (0-5) /hpf Urine RBC (Auto) 12 H (0-3) /hpf Urine Bacteria Rare (<OCC) Hyaline Casts 6-10 H (0-2) /lpf Urine Opiates Screen Negative (NEGATIVE) Urine Methadone Screen Negative (NEGATIVE) Ur Barbiturates Screen Negative (NEGATIVE) Ur Phencyclidine Scrn Negative (NEGATIVE) Ur Amphetamines Screen Negative (NEGATIVE) U Benzodiazepines Scrn Positive (NEGATIVE) U Oth Cocaine Metabols Negative (NEGATIVE) U Cannabinoids Screen Negative (NEGATIVE) Alcohol, Quantitative (0-10) mg/dl 02/24/17 02/24/17 02/24/17 Range/Units 21:30 21:30 21:30 WBC (4.8-10.8) K/uL RBC (4.40-5.90) Mil/uL Hgb (12.0-18.0) g/dL Hct (35.0-51.0) % MCV (80.0-94.0) fL MCH (27.0-31.0) pg MCHC (33.0-37.0) g/dL RDW (11.5-14.5) % Plt Count (130-400) K/uL MPV (7.2-11.7) fL Neut % (Auto) (50.0-75.0) % Lymph % (Auto) (20.0-40.0) % Amite % (Auto) (0.0-10.0) % Eos % (Auto) (0.0-4.0) % Baso % (Auto) (0.0-2.0) % Neut # (1.8-7.0) K/uL Lymph # (1.0-4.3) K/uL Amite # (0.0-0.8) K/uL Eos # (0.0-0.7) K/uL Baso # (0.0-0.2) K/uL PT 12.6 H (9.7-12.2) SECONDS INR 1.1 APTT 25 (21-34) SECONDS Puncture Site pCO2 (35-45) mm/Hg pO2 (30-55) mm/Hg HCO3 (21-28) mmol/L ABG pH (7.35-7.45) ABG Total CO2 (22-28) mmol/L ABG O2 Saturation (95-98) % ABG Base Excess (-2.0-3.0) mmol/L ABG Hemoglobin (11.7-17.4) g/dL ABG Carboxyhemoglobin (0.5-1.5) % POC ABG HHb (Measured) (0.0-5.0) % ABG Methemoglobin (0.0-3.0) % Omer Test ABG Potassium (3.6-5.2) mmol/L VBG pH (7.32-7.43) VBG pCO2 (40-60) mmHg VBG HCO3 mmol/L VBG Total CO2 (22-28) mmol/L VBG O2 Sat (Calc) (40-65) % VBG Base Excess (0.0-2.0) mmol/L VBG Potassium (3.6-5.2) mmol/L A-a O2 Difference mm/Hg Respiratory Index Hgb O2 Saturation (95.0-98.0) % Sodium 143 (132-148) mmol/l Chloride 100 (98-107) mmol/L Glucose (75-110) mg/dl Lactate (0.7-2.1) mmol/L Vent Mode Mechanical Rate FiO2 % Tidal Volume PEEP Potassium 4.3 (3.6-5.2) mmol/L Carbon Dioxide 24 (22-30) mmol/L Anion Gap 24 H (10-20) BUN 16 (9-20) mg/dL Creatinine 0.8 (0.8-1.5) MG/DL Est GFR ( Amer) > 60 Est GFR (Non-Af Amer) > 60 POC Glucose (mg/dL) (65-110) mg/dL Random Glucose 151 H (75-110) mg/dL Hemoglobin A1c 7.3 H (4.2-6.5) % Calcium 8.1 L (8.6-10.4) mg/dl Phosphorus (2.5-4.5) mg/dL Magnesium (1.6-2.3) mg/dL Total Bilirubin 0.9 (0.2-1.3) mg/dL AST 103 H (17-59) U/L ALT 62 (21-72) U/L Alkaline Phosphatase 51 (38-126) U/L Troponin I < 0.0120 (0.00-0.120) ng/mL Total Protein 6.7 (6.3-8.3) g/dL Albumin 4.3 (3.5-5.0) g/dL Globulin 2.3 (2.2-3.9) gm/dL Albumin/Globulin Ratio 1.9 (1.0-2.1) Triglycerides 361 H (0-149) mg/dL Cholesterol 100 (0-199) mg/dL LDL Cholesterol Direct < 30 (0-129) mg/dL HDL Cholesterol 65 (30-70) mg/dL Arterial Blood Potassium (3.6-5.2) mmol/L Venous Blood Potassium (3.6-5.2) mmol/L Urine Color (YELLOW) Urine Clarity (Clear) Urine pH (5.0-8.0) Ur Specific Gepp (1.003-1.030) Urine Protein (NEGATIVE) mg/dL Urine Glucose (UA) (Normal) mg/dL Urine Ketones (NEGATIVE) mg/dL Urine Blood (NEGATIVE) Urine Nitrate (NEGATIVE) Urine Bilirubin (NEGATIVE) Urine Urobilinogen (0.2-1.0) mg/dL Ur Leukocyte Esterase (Negative) Uriah/uL Urine WBC (Auto) (0-5) /hpf Urine RBC (Auto) (0-3) /hpf Urine Bacteria (<OCC) Hyaline Casts (0-2) /lpf Urine Opiates Screen (NEGATIVE) Urine Methadone Screen (NEGATIVE) Ur Barbiturates Screen (NEGATIVE) Ur Phencyclidine Scrn (NEGATIVE) Ur Amphetamines Screen (NEGATIVE) U Benzodiazepines Scrn (NEGATIVE) U Oth Cocaine Metabols (NEGATIVE) U Cannabinoids Screen (NEGATIVE) Alcohol, Quantitative 523 H (0-10) mg/dl 02/24/17 02/24/17 Range/Units 21:30 21:23 WBC 6.7 (4.8-10.8) K/uL RBC 4.87 (4.40-5.90) Mil/uL Hgb 13.3 (12.0-18.0) g/dL Hct 39.7 (35.0-51.0) % MCV 81.6 (80.0-94.0) fL MCH 27.3 (27.0-31.0) pg MCHC 33.4 (33.0-37.0) g/dL RDW 14.3 (11.5-14.5) % Plt Count 348 (130-400) K/uL MPV 7.0 L (7.2-11.7) fL Neut % (Auto) 50.1 (50.0-75.0) % Lymph % (Auto) 43.1 H (20.0-40.0) % Amite % (Auto) 6.0 (0.0-10.0) % Eos % (Auto) 0.3 (0.0-4.0) % Baso % (Auto) 0.5 (0.0-2.0) % Neut # 3.4 (1.8-7.0) K/uL Lymph # 2.9 (1.0-4.3) K/uL Amite # 0.4 (0.0-0.8) K/uL Eos # 0.0 (0.0-0.7) K/uL Baso # 0.0 (0.0-0.2) K/uL PT (9.7-12.2) SECONDS INR APTT (21-34) SECONDS Puncture Site pCO2 (35-45) mm/Hg pO2 (30-55) mm/Hg HCO3 (21-28) mmol/L ABG pH (7.35-7.45) ABG Total CO2 (22-28) mmol/L ABG O2 Saturation (95-98) % ABG Base Excess (-2.0-3.0) mmol/L ABG Hemoglobin (11.7-17.4) g/dL ABG Carboxyhemoglobin (0.5-1.5) % POC ABG HHb (Measured) (0.0-5.0) % ABG Methemoglobin (0.0-3.0) % Omer Test ABG Potassium (3.6-5.2) mmol/L VBG pH (7.32-7.43) VBG pCO2 (40-60) mmHg VBG HCO3 mmol/L VBG Total CO2 (22-28) mmol/L VBG O2 Sat (Calc) (40-65) % VBG Base Excess (0.0-2.0) mmol/L VBG Potassium (3.6-5.2) mmol/L A-a O2 Difference mm/Hg Respiratory Index Hgb O2 Saturation (95.0-98.0) % Sodium (132-148) mmol/l Chloride (98-107) mmol/L Glucose (75-110) mg/dl Lactate (0.7-2.1) mmol/L Vent Mode Mechanical Rate FiO2 % Tidal Volume PEEP Potassium (3.6-5.2) mmol/L Carbon Dioxide (22-30) mmol/L Anion Gap (10-20) BUN (9-20) mg/dL Creatinine (0.8-1.5) MG/DL Est GFR ( Amer) Est GFR (Non-Af Amer) POC Glucose (mg/dL) 145 H (65-110) mg/dL Random Glucose (75-110) mg/dL Hemoglobin A1c (4.2-6.5) % Calcium (8.6-10.4) mg/dl Phosphorus (2.5-4.5) mg/dL Magnesium (1.6-2.3) mg/dL Total Bilirubin (0.2-1.3) mg/dL AST (17-59) U/L ALT (21-72) U/L Alkaline Phosphatase (38-126) U/L Troponin I (0.00-0.120) ng/mL Total Protein (6.3-8.3) g/dL Albumin (3.5-5.0) g/dL Globulin (2.2-3.9) gm/dL Albumin/Globulin Ratio (1.0-2.1) Triglycerides (0-149) mg/dL Cholesterol (0-199) mg/dL LDL Cholesterol Direct (0-129) mg/dL HDL Cholesterol (30-70) mg/dL Arterial Blood Potassium (3.6-5.2) mmol/L Venous Blood Potassium (3.6-5.2) mmol/L Urine Color (YELLOW) Urine Clarity (Clear) Urine pH (5.0-8.0) Ur Specific Gepp (1.003-1.030) Urine Protein (NEGATIVE) mg/dL Urine Glucose (UA) (Normal) mg/dL Urine Ketones (NEGATIVE) mg/dL Urine Blood (NEGATIVE) Urine Nitrate (NEGATIVE) Urine Bilirubin (NEGATIVE) Urine Urobilinogen (0.2-1.0) mg/dL Ur Leukocyte Esterase (Negative) Uriah/uL Urine WBC (Auto) (0-5) /hpf Urine RBC (Auto) (0-3) /hpf Urine Bacteria (<OCC) Hyaline Casts (0-2) /lpf Urine Opiates Screen (NEGATIVE) Urine Methadone Screen (NEGATIVE) Ur Barbiturates Screen (NEGATIVE) Ur Phencyclidine Scrn (NEGATIVE) Ur Amphetamines Screen (NEGATIVE) U Benzodiazepines Scrn (NEGATIVE) U Oth Cocaine Metabols (NEGATIVE) U Cannabinoids Screen (NEGATIVE) Alcohol, Quantitative (0-10) mg/dl Laboratory Results - last 24 hr 02/24/17 02/24/17 02/24/17 21:23 21:30 21:30 WBC 6.7 RBC 4.87 Hgb 13.3 Hct 39.7 MCV 81.6 MCH 27.3 MCHC 33.4 RDW 14.3 Plt Count 348 MPV 7.0 L Neut % (Auto) 50.1 Lymph % (Auto) 43.1 H Amite % (Auto) 6.0 Eos % (Auto) 0.3 Baso % (Auto) 0.5 Neut # 3.4 Lymph # 2.9 Amite # 0.4 Eos # 0.0 Baso # 0.0 PT 12.6 H INR 1.1 APTT 25 Puncture Site pCO2 pO2 HCO3 ABG pH ABG Total CO2 ABG O2 Saturation ABG Base Excess ABG Hemoglobin ABG Carboxyhemoglobin POC ABG HHb (Measured) ABG Methemoglobin Omer Test ABG Potassium VBG pH VBG pCO2 VBG HCO3 VBG Total CO2 VBG O2 Sat (Calc) VBG Base Excess VBG Potassium A-a O2 Difference Respiratory Index Hgb O2 Saturation Sodium Chloride Glucose Lactate Vent Mode Mechanical Rate FiO2 Tidal Volume PEEP Potassium Carbon Dioxide Anion Gap BUN Creatinine Est GFR ( Amer) Est GFR (Non-Af Amer) POC Glucose (mg/dL) 145 H Random Glucose Hemoglobin A1c Calcium Phosphorus Magnesium Total Bilirubin AST ALT Alkaline Phosphatase Troponin I Total Protein Albumin Globulin Albumin/Globulin Ratio Triglycerides Cholesterol LDL Cholesterol Direct HDL Cholesterol Arterial Blood Potassium Venous Blood Potassium Urine Color Urine Clarity Urine pH Ur Specific Gepp Urine Protein Urine Glucose (UA) Urine Ketones Urine Blood Urine Nitrate Urine Bilirubin Urine Urobilinogen Ur Leukocyte Esterase Urine WBC (Auto) Urine RBC (Auto) Urine Bacteria Hyaline Casts Urine Opiates Screen Urine Methadone Screen Ur Barbiturates Screen Ur Phencyclidine Scrn Ur Amphetamines Screen U Benzodiazepines Scrn U Oth Cocaine Metabols U Cannabinoids Screen Alcohol, Quantitative 02/24/17 02/24/17 02/24/17 21:30 21:30 21:30 WBC RBC Hgb Hct MCV MCH MCHC RDW Plt Count MPV Neut % (Auto) Lymph % (Auto) Amite % (Auto) Eos % (Auto) Baso % (Auto) Neut # Lymph # Amite # Eos # Baso # PT INR APTT Puncture Site pCO2 pO2 311 H HCO3 ABG pH ABG Total CO2 ABG O2 Saturation ABG Base Excess ABG Hemoglobin ABG Carboxyhemoglobin POC ABG HHb (Measured) ABG Methemoglobin Omer Test ABG Potassium VBG pH 7.36 VBG pCO2 51 VBG HCO3 26.9 VBG Total CO2 30.4 H VBG O2 Sat (Calc) 99.9 H VBG Base Excess 2.4 H VBG Potassium 3.7 A-a O2 Difference Respiratory Index Hgb O2 Saturation Sodium 143 140.0 Chloride 100 106.0 Glucose 171 H Lactate 3.7 H Vent Mode Mechanical Rate FiO2 Tidal Volume PEEP Potassium 4.3 Carbon Dioxide 24 Anion Gap 24 H BUN 16 Creatinine 0.8 Est GFR ( Amer) > 60 Est GFR (Non-Af Amer) > 60 POC Glucose (mg/dL) Random Glucose 151 H Hemoglobin A1c 7.3 H Calcium 8.1 L Phosphorus Magnesium Total Bilirubin 0.9 AST 103 H ALT 62 Alkaline Phosphatase 51 Troponin I < 0.0120 Total Protein 6.7 Albumin 4.3 Globulin 2.3 Albumin/Globulin Ratio 1.9 Triglycerides 361 H Cholesterol 100 LDL Cholesterol Direct < 30 HDL Cholesterol 65 Arterial Blood Potassium Venous Blood Potassium 3.7 Urine Color Urine Clarity Urine pH Ur Specific Gepp Urine Protein Urine Glucose (UA) Urine Ketones Urine Blood Urine Nitrate Urine Bilirubin Urine Urobilinogen Ur Leukocyte Esterase Urine WBC (Auto) Urine RBC (Auto) Urine Bacteria Hyaline Casts Urine Opiates Screen Urine Methadone Screen Ur Barbiturates Screen Ur Phencyclidine Scrn Ur Amphetamines Screen U Benzodiazepines Scrn U Oth Cocaine Metabols U Cannabinoids Screen Alcohol, Quantitative 523 H 02/24/17 02/24/17 02/24/17 21:38 21:38 21:50 WBC RBC Hgb Hct MCV MCH MCHC RDW Plt Count MPV Neut % (Auto) Lymph % (Auto) Amite % (Auto) Eos % (Auto) Baso % (Auto) Neut # Lymph # Amite # Eos # Baso # PT INR APTT Puncture Site Lb pCO2 49 H pO2 190 H HCO3 25.6 ABG pH 7.35 ABG Total CO2 28.6 H ABG O2 Saturation 99.5 H ABG Base Excess 0.8 ABG Hemoglobin ABG Carboxyhemoglobin POC ABG HHb (Measured) ABG Methemoglobin Omer Test P ABG Potassium 3.4 L VBG pH VBG pCO2 VBG HCO3 VBG Total CO2 VBG O2 Sat (Calc) VBG Base Excess VBG Potassium A-a O2 Difference 462.0 Respiratory Index 2.4 Hgb O2 Saturation Sodium 140.0 Chloride 107.0 Glucose 169 H Lactate 3.7 H Vent Mode Prvc Mechanical Rate 12 FiO2 100.0 Tidal Volume 500 PEEP 5 Potassium Carbon Dioxide Anion Gap BUN Creatinine Est GFR ( Amer) Est GFR (Non-Af Amer) POC Glucose (mg/dL) Random Glucose Hemoglobin A1c Calcium Phosphorus Magnesium Total Bilirubin AST ALT Alkaline Phosphatase Troponin I Total Protein Albumin Globulin Albumin/Globulin Ratio Triglycerides Cholesterol LDL Cholesterol Direct HDL Cholesterol Arterial Blood Potassium 3.4 L Venous Blood Potassium Urine Color Yellow Urine Clarity Clear Urine pH 6.0 Ur Specific Gepp 1.014 Urine Protein Negative Urine Glucose (UA) 1+ H Urine Ketones Negative Urine Blood 1+ H Urine Nitrate Negative Urine Bilirubin Negative Urine Urobilinogen Normal Ur Leukocyte Esterase Neg Urine WBC (Auto) 4 Urine RBC (Auto) 12 H Urine Bacteria Rare Hyaline Casts 6-10 H Urine Opiates Screen Negative Urine Methadone Screen Negative Ur Barbiturates Screen Negative Ur Phencyclidine Scrn Negative Ur Amphetamines Screen Negative U Benzodiazepines Scrn Positive U Oth Cocaine Metabols Negative U Cannabinoids Screen Negative Alcohol, Quantitative 02/25/17 02/25/17 02/25/17 00:04 05:16 05:49 WBC RBC Hgb Hct MCV MCH MCHC RDW Plt Count MPV Neut % (Auto) Lymph % (Auto) Amite % (Auto) Eos % (Auto) Baso % (Auto) Neut # Lymph # Amite # Eos # Baso # PT INR APTT Puncture Site Rb pCO2 49 H pO2 277 H HCO3 24.9 ABG pH 7.34 L ABG Total CO2 27.9 ABG O2 Saturation 99.8 H ABG Base Excess 0 ABG Hemoglobin 12.7 ABG Carboxyhemoglobin 1.3 POC ABG HHb (Measured) 0.2 ABG Methemoglobin 1.2 Omer Test Na ABG Potassium VBG pH VBG pCO2 VBG HCO3 VBG Total CO2 VBG O2 Sat (Calc) VBG Base Excess VBG Potassium A-a O2 Difference 90.0 Respiratory Index 0.3 Hgb O2 Saturation 97.4 Sodium Chloride Glucose Lactate Vent Mode Prvc Mechanical Rate 12 FiO2 60.0 Tidal Volume 500 PEEP 5 Potassium Carbon Dioxide Anion Gap BUN Creatinine Est GFR ( Amer) Est GFR (Non-Af Amer) POC Glucose (mg/dL) 186 H 119 H Random Glucose Hemoglobin A1c Calcium Phosphorus Magnesium Total Bilirubin AST ALT Alkaline Phosphatase Troponin I Total Protein Albumin Globulin Albumin/Globulin Ratio Triglycerides Cholesterol LDL Cholesterol Direct HDL Cholesterol Arterial Blood Potassium Venous Blood Potassium Urine Color Urine Clarity Urine pH Ur Specific Gepp Urine Protein Urine Glucose (UA) Urine Ketones Urine Blood Urine Nitrate Urine Bilirubin Urine Urobilinogen Ur Leukocyte Esterase Urine WBC (Auto) Urine RBC (Auto) Urine Bacteria Hyaline Casts Urine Opiates Screen Urine Methadone Screen Ur Barbiturates Screen Ur Phencyclidine Scrn Ur Amphetamines Screen U Benzodiazepines Scrn U Oth Cocaine Metabols U Cannabinoids Screen Alcohol, Quantitative 02/25/17 02/25/17 02/25/17 06:43 06:43 11:58 WBC 9.5 RBC 4.87 Hgb 13.6 Hct 40.2 MCV 82.6 MCH 27.9 MCHC 33.8 RDW 14.0 Plt Count 275 MPV 7.4 Neut % (Auto) 65.5 Lymph % (Auto) 28.7 Amite % (Auto) 5.3 Eos % (Auto) 0.1 Baso % (Auto) 0.4 Neut # 6.2 Lymph # 2.7 Amite # 0.5 Eos # 0.0 Baso # 0.0 PT INR APTT Puncture Site pCO2 pO2 HCO3 ABG pH ABG Total CO2 ABG O2 Saturation ABG Base Excess ABG Hemoglobin ABG Carboxyhemoglobin POC ABG HHb (Measured) ABG Methemoglobin Omer Test ABG Potassium VBG pH VBG pCO2 VBG HCO3 VBG Total CO2 VBG O2 Sat (Calc) VBG Base Excess VBG Potassium A-a O2 Difference Respiratory Index Hgb O2 Saturation Sodium 149 H Chloride 108 H Glucose Lactate Vent Mode Mechanical Rate FiO2 Tidal Volume PEEP Potassium 4.9 Carbon Dioxide 23 Anion Gap 24 H BUN 11 Creatinine 0.7 L Est GFR ( Amer) > 60 Est GFR (Non-Af Amer) > 60 POC Glucose (mg/dL) 139 H Random Glucose 109 Hemoglobin A1c Calcium 8.0 L Phosphorus 4.7 H Magnesium 1.8 Total Bilirubin 0.7 AST 76 H D ALT 60 Alkaline Phosphatase 55 Troponin I Total Protein 6.4 Albumin 4.1 Globulin 2.3 Albumin/Globulin Ratio 1.8 Triglycerides Cholesterol LDL Cholesterol Direct HDL Cholesterol Arterial Blood Potassium Venous Blood Potassium Urine Color Urine Clarity Urine pH Ur Specific Gepp Urine Protein Urine Glucose (UA) Urine Ketones Urine Blood Urine Nitrate Urine Bilirubin Urine Urobilinogen Ur Leukocyte Esterase Urine WBC (Auto) Urine RBC (Auto) Urine Bacteria Hyaline Casts Urine Opiates Screen Urine Methadone Screen Ur Barbiturates Screen Ur Phencyclidine Scrn Ur Amphetamines Screen U Benzodiazepines Scrn U Oth Cocaine Metabols U Cannabinoids Screen Alcohol, Quantitative 02/25/17 02/25/17 14:58 16:57 WBC RBC Hgb Hct MCV MCH MCHC RDW Plt Count MPV Neut % (Auto) Lymph % (Auto) Amite % (Auto) Eos % (Auto) Baso % (Auto) Neut # Lymph # Amite # Eos # Baso # PT INR APTT Puncture Site pCO2 pO2 HCO3 ABG pH ABG Total CO2 ABG O2 Saturation ABG Base Excess ABG Hemoglobin ABG Carboxyhemoglobin POC ABG HHb (Measured) ABG Methemoglobin Omer Test ABG Potassium VBG pH VBG pCO2 VBG HCO3 VBG Total CO2 VBG O2 Sat (Calc) VBG Base Excess VBG Potassium A-a O2 Difference Respiratory Index Hgb O2 Saturation Sodium Chloride Glucose Lactate Vent Mode Mechanical Rate FiO2 Tidal Volume PEEP Potassium Carbon Dioxide Anion Gap BUN Creatinine Est GFR ( Amer) Est GFR (Non-Af Amer) POC Glucose (mg/dL) 154 H Random Glucose Hemoglobin A1c Calcium Phosphorus Magnesium Total Bilirubin AST ALT Alkaline Phosphatase Troponin I < 0.0120 Total Protein Albumin Globulin Albumin/Globulin Ratio Triglycerides Cholesterol LDL Cholesterol Direct HDL Cholesterol Arterial Blood Potassium Venous Blood Potassium Urine Color Urine Clarity Urine pH Ur Specific Gepp Urine Protein Urine Glucose (UA) Urine Ketones Urine Blood Urine Nitrate Urine Bilirubin Urine Urobilinogen Ur Leukocyte Esterase Urine WBC (Auto) Urine RBC (Auto) Urine Bacteria Hyaline Casts Urine Opiates Screen Urine Methadone Screen Ur Barbiturates Screen Ur Phencyclidine Scrn Ur Amphetamines Screen U Benzodiazepines Scrn U Oth Cocaine Metabols U Cannabinoids Screen Alcohol, Quantitative EKG/Cardiology Studies: Cardiology / EKG Studies 02/24/17 21:18 ELECTROCARDIOGRAM Stat Comment: ED 4 Mode Of Transportation: STRETCHER Reason For Exam: adm 02/26/17 23:30 ELECTROCARDIOGRAM DAILY Comment: Mode Of Transportation: PORTABLE Reason For Exam: f/u s/p arrest 02/27/17 23:30 ELECTROCARDIOGRAM DAILY Comment: Mode Of Transportation: PORTABLE Reason For Exam: f/u s/p arrest Fingerstick Blood Sugar Results: 145
[2017-02-26] MEDS: (Novolin R) Insulin Human Regular 100 units/ml vial SC SCH ×5 (00:55→22:11)
[2017-02-26] MEDS: Dextrose 5%/0.9% NS 1,000 ML IV SCH ×2 (08:08)
[2017-02-26] MEDS: Multiple Vitamins Tab PO SCH (09:13)
[2017-02-26] MEDS: Thiamine 100 mg/ml Inj IV SCH (09:14)
[2017-02-26] MEDS ORDERED: Multiple Vitamins Oral Solution PO SCH (10:15)
--- NOTE | 2017-02-26 17:40 | CP.PCM.PN ---
Subjective - Date & Time of Evaluation Date of Evaluation: 02/26/17 Time of Evaluation: 11:45 - Subjective Subjective: No events, patient awake, oriented x3, slight tremors noticed. Patient mentioned he stopped drinking up till 10 days ago, then restarted due to stress situation about 2-3 drinks/day but 1-2 pints on the day brought to the hospital. Objective - Vital Signs/Intake and Output Vital Signs (last 24 hours): Temp Pulse Resp BP Pulse Ox 97.9 F 71 17 136/67 100 02/26/17 12:00 02/26/17 15:20 02/26/17 15:20 02/26/17 13:17 02/26/17 14:20 Intake and Output: 02/26/17 02/26/17 06:59 18:59 Intake Total 1500 1200 Output Total 850 1000 Balance 650 200 - Medications Medications: Current Medications Famotidine (Pepcid) 20 mg PO DAILY [facility] Folic Acid (Folic Acid) 1 mg PO DAILY [facility] Heparin Sodium (Porcine) (Heparin) 5,000 units SC Q8 [facility] Last Admin: 02/26/17 14:13 Dose: 5,000 units Insulin Human Regular (Novolin R) 0 unit SC ACHS ED PRN Reason: Protocol Last Admin: 02/26/17 17:00 Dose: Not Given Lorazepam (Ativan) 2 mg IVP Q3 PRN PRN Reason: Anxiety Last Admin: 02/26/17 17:16 Dose: 2 mg Multivitamins (Hexavitamin) 1 tab PO DAILY [facility] Last Admin: 02/26/17 09:13 Dose: 1 tab Thiamine HCl (Vitamin B1 Tab) 100 mg PO DAILY [facility] Last Admin: 02/26/17 10:51 Dose: Not Given - Labs Labs: 02/25/17 06:43 02/25/17 06:43 PT 12.6 SECONDS (9.7-12.2) H 02/24/17 21:30 INR 1.1 02/24/17 21:30 APTT 25 SECONDS (21-34) 02/24/17 21:30 - Additional Findings Additional findings: * HEENT SAMUEL * Neck Supple * Chest Clear, no wheezes or rales * CVS regular, no gallop or rub * PA soft, nt bs present * Ext, no edema * skin normal turgor * [employer] awake oriented x3 no nfd, slight tremors. Assessment and Plan - Assessment and Plan (Free Text) Assessment: * Alcohol intoxication intubated then self extubated, now in slight withdrawal, normal mental status * H/o HTN * NIDDM * Plan: Counselled about about alcohol cessation MVT changed to oral Will need son bzd to prevent withdrawal Transferred to the floor.
[2017-02-26 19:24] VITALS: RESP 20
--- NOTE | 2017-02-26 20:15 | CP.PCM.PN ---
Subjective - Date & Time of Evaluation Date of Evaluation: 02/26/17 Time of Evaluation: 21:30 - Subjective Subjective: clinically same. Objective - Vital Signs/Intake and Output Vital Signs (last 24 hours): Temp Pulse Resp BP Pulse Ox 98.3 F 73 20 134/82 100 02/26/17 19:00 02/26/17 19:00 02/26/17 19:00 02/26/17 19:00 02/26/17 19:00 Intake and Output: 02/26/17 02/27/17 18:59 06:59 Intake Total 1850 Output Total 1700 Balance 150 - Medications Medications: Current Medications Famotidine (Pepcid) 20 mg PO DAILY [facility] Folic Acid (Folic Acid) 1 mg PO DAILY [facility] Heparin Sodium (Porcine) (Heparin) 5,000 units SC Q8 [facility] Last Admin: 02/26/17 14:13 Dose: 5,000 units Insulin Human Regular (Novolin R) 0 unit SC ACHS ED PRN Reason: Protocol Last Admin: 02/26/17 17:00 Dose: Not Given Lorazepam (Ativan) 2 mg IVP Q3 PRN PRN Reason: Anxiety Last Admin: 02/26/17 17:16 Dose: 2 mg Multivitamins (Hexavitamin) 1 tab PO DAILY [facility] Last Admin: 02/26/17 09:13 Dose: 1 tab Thiamine HCl (Vitamin B1 Tab) 100 mg PO DAILY [facility] Last Admin: 02/26/17 10:51 Dose: Not Given - Labs Labs: 02/25/17 06:43 02/25/17 06:43 PT 12.6 SECONDS (9.7-12.2) H 02/24/17 21:30 INR 1.1 02/24/17 21:30 APTT 25 SECONDS (21-34) 02/24/17 21:30 - Back Exam Back Exam: NORMAL INSPECTION - Neurological Exam Neurological Exam: Alert, Awake, CN II-XII Intact, Normal Gait, Oriented x3 - Psychiatric Exam Psychiatric exam: Normal Affect, Normal Mood - Skin Skin Exam: Dry, Intact, Normal Color, Warm Assessment and Plan (1) Alcohol intoxication Status: Acute (2) Cardiac arrest Status: Acute (3) ETOH abuse Status: Acute (4) Respiratory arrest Status: Acute - Assessment and Plan (Free Text) Plan: Echocardiogram suggested LVEF of 55-60%. Trace MR. Trace TR. Chest x-ray suggestive of crowded bronchovascular markings. EKG normal. CT head indeterminate. Patient self extubated once. Tachycardia and delirium tremors were noted. Benzodiazepine was given. Currently patient is awake and oriented. Counseling about alcohol sedation. Continue lorazepam. Continue supportive care.
[2017-02-27] MEDS: (Novolin R) Insulin Human Regular 100 units/ml vial SC SCH ×2 (07:36→11:42)
[2017-02-27 08:08] VITALS: BP 119/71; PULSE 60; TEMP 98.1; O2SAT 97
[2017-02-27] MEDS: Multiple Vitamins Tab PO SCH (10:01)
[2017-02-27] MEDS ORDERED: Pneumococcal 23-Valent Vaccine IM ONE (14:17)
[2017-02-27] MEDS ORDERED: Influenza Vaccine 60 mcg/0.5 mL SYR (4YR UP) IM ONE (14:17)
--- NOTE | 2017-02-27 17:14 | CP.PCM.PN ---
Subjective - Date & Time of Evaluation Date of Evaluation: 02/27/17 Time of Evaluation: 11:00 - Subjective Subjective: Alert, oriented, steady gait, NAD. Objective - Vital Signs/Intake and Output Vital Signs (last 24 hours): Temp Pulse Resp BP Pulse Ox 98.1 F 60 20 119/71 97 02/27/17 08:08 02/27/17 08:08 02/27/17 08:08 02/27/17 10:02 02/27/17 08:08 Intake and Output: 02/27/17 02/27/17 06:59 18:59 Intake Total 440 Balance 440 - Labs Labs: 02/25/17 06:43 02/25/17 06:43 PT 12.6 SECONDS (9.7-12.2) H 02/24/17 21:30 INR 1.1 02/24/17 21:30 APTT 25 SECONDS (21-34) 02/24/17 21:30 Assessment and Plan - Assessment and Plan (Free Text) Assessment: Patient is seen and examined. Alert, awake,no tremors, has steady gait.Seen by DR Jazmyn Orta , cleared for discharge home. Advised to follow up in the office in 1 week.
--- NOTE | 2017-02-28 14:00 | CARD ---
APPROVED REPORT EKG Measurement Heart [id number] MT [id number] <Conclusion> Normal sinus rhythm Normal ECG
--- NOTE | 2017-02-28 22:11 | CARD ---
APPROVED REPORT EKG Measurement Heart [id number] CT [id number] <Conclusion> Normal sinus rhythm Normal ECG
--- NOTE | 2017-03-05 06:49 | CARD ---
APPROVED REPORT EKG Measurement Heart [id number] SC 128P [id number] <Conclusion> Sinus bradycardia Lateral infarct, age undetermined Abnormal ECG
== END 2017-02-27 15:30 | disposition home or self-care (01) | DRG 896 ==
LOC: C.ER 21:13 → C.9I 22:29 → C.3T 02-26 19:07
PROVIDERS: ADMIT Internal Medicine Nephrology; ATTEND Internal Medicine Nephrology
PROC: 5A1945Z Respiratory Ventilation, 24-96 Consecutive Hours (ICD-10-PCS; principal; 2017-02-24)
PROC: HZ2ZZZZ Detoxification Services for Substance Abuse Treatment (ICD-10-PCS; 2017-02-24)
DX: F10.231 Alcohol dependence with withdrawal delirium (principal); I46.9 Cardiac arrest, cause unspecified; J96.00 Acute respiratory failure, unspecified whether with hypoxia or hypercapnia; E11.9 Type 2 diabetes mellitus without complications; E78.00 Pure hypercholesterolemia, unspecified; I10 Essential (primary) hypertension; Y90.8 Blood alcohol level of 240 mg/100 ml or more; Z79.84 Long term (current) use of oral hypoglycemic drugs